=== PATIENT | female | born 1955 | race Caucasian/White ===

== ENCOUNTER 2020-10-25 09:24 | Outpatient (CLI) | payer OTHER | END 2020-10-25 09:25 | disposition home or self-care (01) | LOC: CSHMAMMO 09:24 | PROVIDERS: ATTEND Family Medicine | DX: Z13.820 Encounter for screening for osteoporosis (principal); M85.89 Other specified disorders of bone density and structure, multiple sites | CPT/HCPCS: 77080 ==

== ENCOUNTER 2021-03-03 14:18 | Outpatient (CLI) | payer OTHER | END 2021-03-03 14:19 | disposition home or self-care (01) | LOC: CSHMAMMO 14:18 | PROVIDERS: ATTEND Family Medicine | DX: Z12.31 Encounter for screening mammogram for malignant neoplasm of breast (principal) | CPT/HCPCS: 77063; 77067 ==